=== PATIENT | female | born 1960 | race Two or more races ===

== ENCOUNTER 2016-12-29 15:31 | Outpatient (CLI) | payer BC | END 2016-12-29 19:27 | disposition home or self-care (01) | LOC: SMA 15:31 | PROVIDERS: ATTEND Family Medicine | DX: Z12.31 Encounter for screening mammogram for malignant neoplasm of breast (principal) | CPT/HCPCS: G0202 ==

== ENCOUNTER 2017-01-10 14:41 | Outpatient (CLI) | payer BC | END 2017-01-10 20:33 | disposition home or self-care (01) | LOC: SUS 14:41 | PROVIDERS: ATTEND Family Medicine | DX: R92.8 Other abnormal and inconclusive findings on diagnostic imaging of breast (principal) | CPT/HCPCS: 76642 ==